=== PATIENT | female | born 1975 | race Caucasian/White ===

== ENCOUNTER → 2016-05-08 | Outpatient (CLI) | payer BC ==
[~2016-05-08] MED LIST: ALBU1AER9 INH
== END | disposition home or self-care (01) ==
LOC: C.LABSPEC 16:43
PROVIDERS: ATTEND Dermatology
DX: L73.9 Follicular disorder, unspecified (principal)

== ENCOUNTER → 2016-07-04 | Outpatient (CLI) | payer BC | END | disposition home or self-care (01) | LOC: C.PAPS 09:33 | PROVIDERS: ATTEND Obstetrics & Gynecology | DX: Z01.419 Encounter for gynecological examination (general) (routine) without abnormal findings (principal) ==

== ENCOUNTER 2016-09-09 17:58 | Emergency (ER) | payer BC ==
[~2016-09-09] VITALS: Ht 160 cm; Wt 77.9 kg
[2016-09-09 18:02] VITALS: BP 109/75; PULSE 79; TEMP 36.9; O2SAT 96; Ht 160 cm; Wt 77.9 kg
[2016-09-09] MEDS ORDERED: DIPHTHERIA/TETANUS/PERTUSSIS 0.5 ML SYR/VIAL IM. ONE (18:15)
[2016-09-09] MEDS ORDERED: XYLOCAINE 1%/SOD BICARB 20 ML VIAL INFIL ONE (18:15)
--- NOTE | 2016-09-09 18:44 | EMERGENCY ROOM VISIT NOTE ---
History First contact with patient: 18:09 Chief Complaint: LACERATION/CUT (NON-SUTURE) Stated Complaint: CUT RT HAND History of Present Illness The patient is a 41 year old female who presents to the Emergency Room with complaints of a laceration to her right hand. The patient reports that she dropped a glass and it broke, cutting her hand. She rates her discomfort a 6 out of 10, and believe that there is a piece of glass in the wound. She denies any paresthesias or numbness of the right hand or fingers. Tetanus immunization is unknown. The patient is [id number]. Review of Systems 10 system review was performed and was negative except for pertinent positives and negatives as indicated in history of present illness Past Medical/Surgical History Medical Problems: (1) Kidney stones (2) OBSTRUCTIVE SLEEP APNEA (ADULT) (PEDIATRIC) (3) Ovarian cyst Surgical Problems: (1) Hx of breast reduction, elective (2) S/P section Family History Cancer Diabetes mellitus FHx: ovarian cancer Hypertension Social History Smoking Status: Never Smoker Alcohol Use: none Drug Use: none Marital Status: Housing Status: lives with family Occupation Status: employed Current/Historical Medications No Active Prescriptions or Reported Meds Physical Exam Vital Signs Date Time Temp Pulse Resp B/P (MAP) Pulse Ox O2 Delivery O2 Flow Rate FiO2 09/09/16 18:02 36.9 79 16 109/75 96 Room Air Physical Exam CONSTITUTIONAL: Healthy and well nourished. Alert and oriented X 3 with positive affect. HEENT: Normocephalic, atraumatic. Pupils equal, round and reactive. MUSCULOSKELETAL: Examination of the right hand shows a 1 cm laceration over the dorsal first metacarpal region. The patient is able to extend the thumb against resistance. No active bleeding noted. INTEGUMENTARY: No rash or other significant dermatologic conditions noted. NEUROLOGIC: The right thumb is sensory intact. Medical Decision & Procedures Procedure Laceration repair was performed under local anesthesia after receiving verbal consent from the patient. Using buffered 1% lidocaine without epinephrine, good local anesthesia was administered. A small triangular piece of glass was noted at the proximal margin of the wound and was removed. Further exploration of the wound does not show any additional glass. The wound was then pressure irrigated with normal saline, then approximated using 6-0 nylon simple interrupted sutures 4. Bacitracin Band-Aid was applied. ED Course Patient history and physical exam were performed. Nurse's notes were reviewed. Vital signs were reviewed and normal. Laceration repair was performed under local anesthesia, with a glass foreign body removed prior to closure. The patient was provided additional verbal and written wound care instructions. Ice and elevation for swelling. Ibuprofen or Tylenol as needed for pain. Suture removal in 12-14 days, or seek reevaluation sooner for any signs of wound infection. Patient was happy with plan of care, voiced understanding of all discharge instructions, and denied any pain at the time of discharge. Medical Decision Blood Pressure Screening Patient's blood pressure: Normal blood pressure Impression Primary Impression: Laceration of right hand Departure Information Dispostion Home / Self-Care Prescriptions No Active Prescriptions or Reported Meds Forms HOME CARE DOCUMENTATION FORM, IMPORTANT VISIT INFORMATION Patient Instructions My [facility] Additional Instructions Keep wound clean and dry. Do not allow any crusting or dried blood to accumulate on sutures. If this occurs, use a 1:1 solution of hydrogen peroxide/ water on a Q-tip to clean the wound. Use an antibiotic ointment for 3-4 days, then let wound dry. Suture removal in 12-14 days. Return sooner for any signs of infection (increasing redness, swelling, drainage). Ice and elevate for swelling and pain. Ibuprofen 600 mg and/or Tylenol 1000 mg every 8 hours. You may also alternate these medications for more effective pain relief: Ibuprofen --4 HRS--> Tylenol --4 HRS--> ibuprofen --4 HRS--> Tylenol .... Problem Qualifiers Primary Impression: Laceration of right hand Encounter type: initial encounter Foreign body presence: with foreign body Qualified Codes: S61.421A - Laceration with foreign body of right hand, initial encounter
== END 2016-09-09 18:51 | disposition home or self-care (01) ==
LOC: C.EDB 17:58 → C.EDD 18:51
DX: S61.421A Laceration with foreign body of right hand, initial encounter (principal); W25.XXXA Contact with sharp glass, initial encounter; W45.8XXA Other foreign body or object entering through skin, initial encounter; Z87.442 Personal history of urinary calculi; Z98.891 History of uterine scar from previous surgery; Z98.890 Other specified postprocedural states; Z83.3 Family history of diabetes mellitus; Z82.49 Family history of ischemic heart disease and other diseases of the circulatory system; Z80.41 Family history of malignant neoplasm of ovary; Z23 Encounter for immunization